=== PATIENT | female | born 1960 | race Caucasian/White ===

== ENCOUNTER 2021-06-03 05:43 | Emergency (ER) | payer BC ==
[2021-06-03 05:56] VITALS: BP 165/90; PULSE 88
[2021-06-03] MEDS ORDERED: Iopamidol 612 MG/ML 100 ML Bottle IVPUSH ONE (06:00)
[2021-06-03] MEDS ORDERED: Sodium Chloride 0.9% 10 ML Syringe FLUSH PRN (06:00)
--- NOTE | 2021-06-03 06:00 | EDM.PDOC ---
<Candy Bey Jhon - Last Filed: 06/03/21 07:02> ED HPI GENERAL MEDICAL PROBLEM - General Chief Complaint: Abdominal Pain Stated Complaint: STOMACH PAIN Time Seen by Provider: 06/03/21 05:55 Source of Information: Reports: Patient, RN Notes Reviewed - History of Present Illness INITIAL COMMENTS - FREE TEXT/NARRATIVE: Pt is here for abdominal pain that started back up yesterday. She has been dealing with left lower abdominal pain for a few weeks. She was treated for diverticulitis 2 times with the same 2 medication treatment which would make her feel better, but then her symptoms would return shortly after her antibiotics were complete. She denies any fevers or chills. She is is otherwise feeling well. She notes her stools are loose, but not diarrhea. She has her CT scheduled for 06/07 for further evaluation, but ended up in here tonight as the pain was coming back again tonight. she reports finishing her last round of antibiotics on , about 3-4 days ago, and the symptoms returning yesterday. Onset: Gradual Duration: Day(s): (2) Location: Reports: Abdomen Left Lower Abdomen Pain Score (Numeric/FACES): 7 - Related Data Allergies Allergy/AdvReac Type Severity Reaction Status Date / Time No Known Allergies Allergy Verified 11/30/16 13:52 Home Meds: Home Meds Aspirin [Halfprin] 81 mg PO BRK 11/30/16 [History] Omeprazole 20 mg PO 06/03/21 [History] amLODIPine [Norvasc] 06/03/21 [History] buPROPion [Wellbutrin SR] 06/03/21 [History] Past Medical History Genitourinary History: Reports: UTI, Recurrent Musculoskeletal History: Reports: Other (See Below) Other Musculoskeletal History: tibial plateau fracture ED ROS GENERAL - Review of Systems Review Of Systems: Comprehensive ROS is negative, except as noted in HPI. ED EXAM, GI/ABD - Physical Exam Exam: See Below Exam Limited By: No Limitations General Appearance: Alert, WD/WN, No Apparent Distress Eyes: Bilateral: Normal Appearance Ears: Normal External Exam Throat/Mouth: Normal Voice, No Airway Compromise Head: Atraumatic, Normocephalic Neck: Supple, Non-Tender Respiratory/Chest: No Respiratory Distress, Lungs Clear, Normal Breath Sounds, No Accessory Muscle Use, Chest Non-Tender. No: Rales, Rhonchi, Wheezing Cardiovascular: Normal Peripheral Pulses, Regular Rate, Rhythm, No Murmur GI/Abdominal Exam: Normal Bowel Sounds, Soft, No Distention, Tender (LLQ>LUQ>suprapubic). No: Guarding, Rebound (Female) Exam: Deferred Rectal (Female) Exam: Deferred Extremities: Normal Inspection, No Pedal Edema, Normal Capillary Refill Neurological: Alert, Oriented, Normal Cognition, No Motor/Sensory Deficits Psychiatric: Normal Affect, Normal Mood Skin Exam: Warm, Dry, Intact, Normal Color, No Rash Departure - Departure Disposition: Home, Self-Care 01 Clinical Impression: Renal stone - Discharge Information Instructions: Kidney Stones, [id number], Pain Medicine Instructions, [id number] Forms: ED Department Discharge Additional Instructions: May use ibuprofen as directed, 600 to 800 mg every 8 hours Drink plenty of water Rx: Flomax 0.4 mg orally once daily, begin Friday Rx: [place] 5/325 mg 1-2 tabs every 4 hours as needed for pain Rx: Ondansetron 4 mg ODT 1 orally every 8 hours as needed for nausea Call [facility] urology clinic at [phone] (open at 7am) You are to see Dr. Khoury in the Urology clinic tomorrow am <Almaz Velez - Last Filed: 06/03/21 08:24> Course - Vital Signs Last Recorded V/S: Last Vital Signs Temp 97.5 F 06/03/21 05:51 Pulse 88 06/03/21 05:51 Resp 20 06/03/21 05:51 BP 165/90 H 06/03/21 05:51 Pulse Ox 100 06/03/21 05:51 - Orders/Labs/Meds Orders: Active Orders 24 hr Category Date Time Status Peripheral IV Care [RC] . DIRECTED Care 06/03/21 06:00 Active Sodium Chloride 0.9% [Normal Saline] 1,000 ml Med 06/03/21 07:36 Active IV .BOLUS Sodium Chloride 0.9% [Saline Flush] Med 06/03/21 06:00 Active 10 ml FLUSH ASDIRECTED PRN Peripheral IV Insertion Adult [OM.PC] Stat Oth 06/03/21 05:59 Ordered Medication Orders Sodium Chloride (Normal Saline) 1,000 mls @ 999 mls/hr IV .BOLUS ONE Stop: 06/03/21 08:36 Last Admin: 06/03/21 07:42 Dose: 999 mls/hr Documented by: JOYCE Sodium Chloride (Sodium Chloride 0.9% 10 Ml Syringe) 10 ml FLUSH ASDIRECTED PRN PRN Reason: Keep Vein Open Labs: Laboratory Tests 06/03/21 06/03/21 06/03/21 Range/Units 06:06 06:06 07:08 WBC 12.1 H (5.0-10.0) 10^3/uL RBC 5.28 (4.2-5.4) 10^6/uL Hgb 15.0 (12.0-16.0) g/dL Hct 45.0 (37.0-47.0) % MCV 85.2 (80-100) fL MCH 28.4 (27.0-34.0) pg MCHC 33.3 (33.0-35.0) g/dL Plt Count 334 D (150-450) 10^3/uL Neut % (Auto) 69.6 (42.2-75.2) % Lymph % (Auto) 16.2 L (20.5-50.1) % [place] % (Auto) 11.9 H (2-8) % Eos % (Auto) 2.1 (1.0-3.0) % Baso % (Auto) 0.2 (0.0-1.0) % Sodium 139 (136-145) mmol/L Potassium 4.0 (3.5-5.1) mmol/L Chloride 102 (98-107) mmol/L Carbon Dioxide 28 (21-32) mmol/L Anion Gap 13.0 (7-13) mEq/L BUN 20 H (7-18) mg/dL Creatinine 1.11 H (0.55-1.02) mg/dL Est Cr Clr Drug Dosing 47.29 mL/min Estimated GFR (MDRD) 50 BUN/Creatinine Ratio 18.0 (No establ ref range) Glucose 117 H (70-99) mg/dL Calcium 8.9 (8.5-10.1) mg/dL Total Bilirubin 0.3 (0.2-1.0) mg/dL AST 28 (15-37) U/L ALT 50 (14-59) U/L Alkaline Phosphatase 96 (46-116) U/L Total Protein 7.9 (6.4-8.2) g/dL Albumin 3.5 (3.4-5.0) g/dL Globulin 4.4 Albumin/Globulin Ratio 0.8 Urine Color Yellow (YELLOW) Urine Appearance Clear (CLEAR) Urine pH 7.0 (5.0-9.0) Ur Specific [place] 1.020 (1.005-1.030) Urine Protein Negative (NEGATIVE) Urine Glucose (UA) Negative (NEGATIVE) Urine Ketones Negative (NEGATIVE) Urine Occult Blood Small H (NEGATIVE) Urine Nitrite Negative (NEGATIVE) Urine Bilirubin Negative (NEGATIVE) Urine Urobilinogen 0.2 (0.2-1.0) mg/dL Ur Leukocyte Esterase Negative (NEGATIVE) Urine RBC 0-5 (0-5) /HPF Urine WBC 0-5 (0-5/HPF) /HPF Ur Epithelial Cells Rare (NOT SEEN) /HPF Urine Bacteria Rare (0-FEW/HPF) /HPF Urine Mucus Not seen (NOT SEEN) /LPF Meds: Medications Generic Name Dose Route Start Last Admin Trade Name Freq PRN Reason Stop Dose Admin Sodium Chloride 1,000 mls @ 999 mls/hr 06/03/21 07:36 06/03/21 07:42 Normal Saline IV 06/03/21 08:36 999 mls/hr .BOLUS ONE Administration Sodium Chloride 10 ml 06/03/21 06:00 Sodium Chloride 0.9% 10 Ml Syringe FLUSH ASDIRECTED PRN Keep Vein Open Discontinued Medications Generic Name Dose Route Start Last Admin Trade Name Freq PRN Reason Stop Dose Admin Hydrocodone Bitart/Acetaminophen 1 tab 06/03/21 08:11 06/03/21 08:19 Acetaminophen/Hydrocodone 325-10 Mg Tab PO 06/03/21 08:12 1 tab ONETIME ONE Administration Iopamidol 100 ml 06/03/21 06:00 06/03/21 06:37 Iopamidol 612 Mg/Ml 100 Ml Bottle IVPUSH 06/03/21 06:01 100 ml ONETIME ONE Administration Ketorolac Tromethamine 30 mg 06/03/21 07:35 06/03/21 07:41 Ketorolac 30 Mg/Ml Sdv IVPUSH 06/03/21 07:36 30 mg ONETIME ONE Administration Tamsulosin HCl 0.4 mg 06/03/21 08:09 06/03/21 08:18 Tamsulosin 0.4 Mg Cap.Er PO 06/03/21 08:10 0.4 mg ONETIME ONE Administration - Radiology Interpretation Free Text/Narrative:: CT abdomen/pelvis w/ contrast: Name: CHAR CHAMBERLAIN Age: 61Years F Date: 06/03/2021 SSN: -- : [id number] Study: CT ABDOMEN PELVIS W CONT Requesting Physician: Candy Bey Images: [id number] Addl Studies: Provided Clinical History: abdominal pain Contrast: With Contrast Medium: [id number] Contrast Amount: 100 mL Contrast Method: Intravenous (IV) Page 1 of 2 PROCEDURE INFORMATION: Exam: CT Abdomen And Pelvis With Contrast Exam date and time: 06/03/2021 6:27 AM Age: 61 years old Clinical indication: Other: Wbc 12,100; Additional info: Abdominal pain TECHNIQUE: Imaging protocol: Computed tomography of the abdomen and pelvis with contrast. Radiation optimization: All CT scans at this facility use at least one of these dose optimization techniques: automated exposure control; mA and/or kV adjustment per patient size (includes targeted exams where dose is matched to clinical indication); or iterative reconstruction. Contrast material: [id number]; Contrast volume: 100 ml; Contrast route: INTRAVENOUS (IV); COMPARISON: CT Abdomen Pelvis w Cont 11/30/2016 2:38 PM FINDINGS: Mediastinal space: Small hiatal hernia Liver: Tiny hypoattenuating foci within the left hepatic lobe are too small to accurately characterize; 12 mm hypoattenuating lesion within the right hepatic lobe adjacent to the gallbladder Gallbladder and bile ducts: Normal. No calcified stones. No ductal dilation. Pancreas: Normal. No ductal dilation. Spleen: Normal. No splenomegaly. Adrenal glands: Normal. No mass. Kidneys and ureters: Asymmetric left perinephric stranding and edema. Moderate left hydronephrosis and hydroureter due to a 6 mm calcification at the left UVJ. No right hydronephrosis; Enlarged left kidney Stomach and bowel: Sigmoid diverticulosis with associated muscular hypertrophy Appendix: No evidence of appendicitis. Intraperitoneal space: Unremarkable. No free air. No significant fluid collection. Vasculature: Unremarkable. No abdominal aortic aneurysm. Lymph nodes: Unremarkable. No enlarged lymph nodes. Urinary bladder: Unremarkable as visualized. Reproductive: Unremarkable as visualized. Bones/joints: There is multilevel degenerative disc disease. Soft tissues: Unremarkable. IMPRESSION: 1. Asymmetric left perinephric stranding and edema worrisome for caliceal rupture. 2. Moderate left hydronephrosis and hydroureter due to a 6 mm calcification at the left UVJ. Thank you for allowing us to participate in the care of your patient. Dictated and Authenticated by: Kamran Alanis MD 06/03/2021 7:26 AM Central Time ([place] & [place]) See rad report - Re-Assessments/Exams Free Text/Narrative Re-Assessment/Exam: 06/03/21 08:24 Discussed patient case with Dr. Khoury at [facility] who states the patient can see him in the clinic tomorrow am. Departure - Departure Time of Disposition: 08:45 Condition: Fair - Discharge Information *PRESCRIPTION DRUG MONITORING PROGRAM REVIEWED*: No *COPY OF PRESCRIPTION DRUG MONITORING REPORT IN PATIENT MIREYA: No Sepsis Event Note (ED) - Focused Exam Vital Signs: Vital Signs Temp Pulse Resp BP Pulse Ox 06/03/21 05:51 97.5 F 88 20 165/90 H 100 - My Orders Last 24 Hours: My Active Orders 06/03/21 07:36 Sodium Chloride 0.9% [Normal Saline] 1,000 ml IV .BOLUS - Assessment/Plan Last 24 Hours: My Active Orders 06/03/21 07:36 Sodium Chloride 0.9% [Normal Saline] 1,000 ml IV .BOLUS
--- NOTE | 2021-06-03 07:26 | CT ---
PROCEDURE INFORMATION: Exam: CT Abdomen And Pelvis With Contrast Exam date and time: 06/03/2021 6:27 AM Age: 61 years old Clinical indication: Other: Wbc 12,100; Additional info: Abdominal pain TECHNIQUE: Imaging protocol: Computed tomography of the abdomen and pelvis with contrast. Radiation optimization: All CT scans at this facility use at least one of these dose optimization techniques: automated exposure control; mA and/or kV adjustment per patient size (includes targeted exams where dose is matched to clinical indication); or iterative reconstruction. Contrast material: [id number]; Contrast volume: 100 ml; Contrast route: INTRAVENOUS (IV); COMPARISON: CT Abdomen Pelvis w Cont 11/30/2016 2:38 PM FINDINGS: Mediastinal space: Small hiatal hernia Liver: Tiny hypoattenuating foci within the left hepatic lobe are too small to accurately characterize; 12 mm hypoattenuating lesion within the right hepatic lobe adjacent to the gallbladder Gallbladder and bile ducts: Normal. No calcified stones. No ductal dilation. Pancreas: Normal. No ductal dilation. Spleen: Normal. No splenomegaly. Adrenal glands: Normal. No mass. Kidneys and ureters: Asymmetric left perinephric stranding and edema. Moderate left hydronephrosis and hydroureter due to a 6 mm calcification at the left UVJ. No right hydronephrosis; Enlarged left kidney Stomach and bowel: Sigmoid diverticulosis with associated muscular hypertrophy Appendix: No evidence of appendicitis. Intraperitoneal space: Unremarkable. No free air. No significant fluid collection. Vasculature: Unremarkable. No abdominal aortic aneurysm. Lymph nodes: Unremarkable. No enlarged lymph nodes. Urinary bladder: Unremarkable as visualized. Reproductive: Unremarkable as visualized. Bones/joints: There is multilevel degenerative disc disease. Soft tissues: Unremarkable. IMPRESSION: 1. Asymmetric left perinephric stranding and edema worrisome for caliceal rupture. 2. Moderate left hydronephrosis and hydroureter due to a 6 mm calcification at the left UVJ.
[2021-06-03] MEDS ORDERED: Ketorolac 30 MG/ML SDV IVPUSH ONE (07:35)
[2021-06-03] MEDS ORDERED: Sodium Chloride 0.9% 1,000 ML IV ONE (07:36)
[2021-06-03] MEDS ORDERED: Tamsulosin 0.4 MG Cap.ER PO ONE (08:09)
[2021-06-03] MEDS ORDERED: Acetaminophen/HYDROcodone 325-10 MG Tab PO ONE (08:11)
== END 2021-06-03 08:45 | disposition home or self-care (01) ==
LOC: DL.ED 05:43
DX: N13.2 Hydronephrosis with renal and ureteral calculous obstruction (principal)
CPT/HCPCS: 36415; 74177; 80053; 81001; 85025; 96374; 99284; A9270; J1885; J7030; Q9967